=== PATIENT | female | born 1965 | race Asian ===

== ENCOUNTER 2017-09-06 00:29 | Emergency (ER) | payer OTHER ==
[~2017-09-06] VITALS: Ht 144.8 cm; Wt 54.8 kg
[2017-09-06 02:04] VITALS: BP 112/64
[2017-09-06] MEDS ORDERED: ALBU2.5V11 NEB (02:08)
[2017-09-06] MEDS ORDERED: ventolin (02:08)
== END 2017-09-06 02:44 | disposition home or self-care (01) ==
LOC: ED 02:18
DX: R05 Cough (principal); R06.02 Shortness of breath
CPT/HCPCS: 71020; 93005; 99284

== ENCOUNTER 2019-03-26 15:44 | Inpatient (IN) | payer OTHER ==
[~2019-03-26] VITALS: Ht 144.8 cm; Wt 32.4 kg
[~2019-03-26 15:44] MED LIST: ALBU2.5V11 NEB; ventolin
[2019-03-26 16:13] LABS: BASOPHILS # (AUTO) 0.03 x10^3/uL (0-0.1); BASOPHILS % (AUTO) 1 % (0-1); EOSINOPHILS # (AUTO) 0.18 x10^3/uL (0-0.4); EOSINOPHILS % (AUTO) 3 % (1-7); LYMPHOCYTES % (AUTO) 36 % (22-44); MD NO; MEAN CORPUSCULAR HEMOGLOBIN 29.7 pg (27.0-34.8); MEAN CORPUSCULAR HGB CONC 33.8 g/dL (32.4-35.8); MEAN CORPUSCULAR VOLUME 87.8 fL (80-100); MONOCYTES # (AUTO) 0.54 x10^3/uL (0.2-0.8); MONOCYTES % (AUTO) 9 % (2-9); NEUTROPHILS # (AUTO) 3.14 x10^3/uL (1.8-6.8); NEUTROPHILS % (AUTO) 52 % (42-75); PLATELET COUNT 350 x10^3/uL (130-400); RED BLOOD COUNT 4.78 x10^6/uL (3.82-5.3); RED CELL DISTRIBUTION WIDTH 13.4 % (9.6-15.2)
[2019-03-26 16:24] LABS: ALBUMIN 3.7 g/dL (3.4-5.0); ANION GAP 10 mmol/L (5-15); CALCIUM 9.1 mg/dL (8.5-10.1); CHLORIDE 108 mmol/L (98-107)
[2019-03-26 16:32] LABS: ALANINE AMINOTRANSFERASE 53 U/L (12-78); ALKALINE PHOSPHATASE 94 U/L (45-117); BILIRUBIN,TOTAL 0.4 mg/dL (0.2-1.0); CREATININE 0.52 mg/dL (0.55-1.02); TOTAL PROTEIN 7.9 g/dL (6.4-8.2); TROPONIN I < 0.015 ng/mL (0.000-0.045)
--- NOTE | 2019-03-26 16:50 | NUR ---
TO ROOM FROM LOBBY. NAD.
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
[2019-03-26] MEDS ORDERED: ASPI-515 PO (17:03)
--- NOTE | 2019-03-26 18:03 | NUR ---
ERP AT BEDSIDE FOR INITIAL ASSESSMENT
--- NOTE | 2019-03-26 18:28 | NUR ---
PT IN CT
--- NOTE | 2019-03-26 19:00 | NUR ---
IV ESTABLISHED. BP/SPO2/ECG MONITORIGN IN PLACE SINUS TACH ON MONITOR. PT USING LUE/RLE WO DIFFICULTY. DENIES NEED FOR PAIN MEDICATIONS AT THIS TIME
--- NOTE | 2019-03-26 19:32 | NUR ---
REPORT TO CHRIS GROVE ON FLOOR
[2019-03-26] MEDS ORDERED: ACETAMINOPHEN 325 MG TABLET PO PRN (20:00)
[2019-03-26 20:45] VITALS: BP 113/79
[2019-03-26] MEDS: ENOXAPARIN 40 MG/0.4 ML SQ SCH (20:59)
[2019-03-26 21:01] LABS: TROPONIN I < 0.015 ng/mL (0.000-0.045)
[2019-03-27] VITALS (7 sets, daily range): BP systolic 90–118; BP diastolic 60–79
[2019-03-27 02:04] LABS: BASOPHILS # (AUTO) 0.07 x10^3/uL (0-0.1); BASOPHILS % (AUTO) 1 % (0-1); EOSINOPHILS # (AUTO) 0.18 x10^3/uL (0-0.4); EOSINOPHILS % (AUTO) 3 % (1-7); LYMPHOCYTES # (AUTO) 2.44 x10^3/uL (1-3.4); LYMPHOCYTES % (AUTO) 45 % (22-44); MD NO; MEAN CORPUSCULAR HEMOGLOBIN 29.5 pg (27.0-34.8); MEAN CORPUSCULAR HGB CONC 33.7 g/dL (32.4-35.8); MEAN CORPUSCULAR VOLUME 87.6 fL (80-100); MONOCYTES # (AUTO) 0.59 x10^3/uL (0.2-0.8); MONOCYTES % (AUTO) 11 % (2-9); NEUTROPHILS % (AUTO) 40 % (42-75); PLATELET COUNT 292 x10^3/uL (130-400); RED BLOOD COUNT 4.58 x10^6/uL (3.82-5.3); RED CELL DISTRIBUTION WIDTH 13.3 % (9.6-15.2)
[2019-03-27 02:17] LABS: TROPONIN I < 0.015 ng/mL (0.000-0.045)
[2019-03-27 02:20] LABS: ALANINE AMINOTRANSFERASE 46 U/L (12-78); ALBUMIN 3.2 g/dL (3.4-5.0); ANION GAP 11 mmol/L (5-15); CALCIUM 8.7 mg/dL (8.5-10.1); CHLORIDE 109 mmol/L (98-107); CHOLESTEROL, TOTAL 101 mg/dL (140-239); CREATININE 0.59 mg/dL (0.55-1.02)
[2019-03-27 02:22] LABS: ALKALINE PHOSPHATASE 87 U/L (45-117); BILIRUBIN,TOTAL 0.2 mg/dL (0.2-1.0); CHOL/HDL RATIO 2.6; HDL CHOL % 39 % (28-40); HDL CHOLESTEROL (DIRECT) 39 mg/dL (40-60); LDL CHOLESTEROL,CALCULATED 43 mg/dL (54-169); LDL/HDL RATIO 1.1 (0.5-3.0); TOTAL PROTEIN 7.1 g/dL (6.4-8.2); TRIGLYCERIDES 97 mg/dL (50-200); VLDL CHOLESTEROL 19 mg/dL (0-25)
[2019-03-27] MEDS: ASPIRIN 325 MG TABLET EC PO SCH (06:12)
[2019-03-27] MEDS ORDERED: GADOBUTROL 7.5 MMOL/7.5 ML PFS ONE (09:19)
[2019-03-27] MEDS: SODIUM CHLORIDE 0.9% 1,000 ML IV SCH (17:11)
[2019-03-27 18:27] LABS: FREE T4 (FREE THYROXINE) > 8.00 ng/dL (0.76-1.46)
[2019-03-27] MEDS: ENOXAPARIN 40 MG/0.4 ML SQ SCH (22:33)
[2019-03-28 01:04] VITALS: BP 102/62
[2019-03-28] MEDS: SODIUM CHLORIDE 0.9% 1,000 ML IV SCH (04:13)
[2019-03-28 04:19] VITALS: BP 111/65
[2019-03-28 06:54] VITALS: BP 112/67
[2019-03-28] MEDS: ASPIRIN 325 MG TABLET EC PO SCH (09:12)
[2019-03-28 14:23] VITALS: BP 116/69
[2019-03-28] MEDS ORDERED: METO25TA35 PO (16:00)
== END 2019-03-28 18:44 | disposition home or self-care (01) | DRG 644 ==
LOC: ED 18:48 → EDIP 19:03 → 4WST 19:45
PROVIDERS: ADMIT Family Medicine; ATTEND Family Medicine
DX: E05.20 Thyrotoxicosis with toxic multinodular goiter without thyrotoxic crisis or storm (principal); M48.54XA Collapsed vertebra, not elsewhere classified, thoracic region, initial encounter for fracture; N64.4 Mastodynia; R00.0 Tachycardia, unspecified; M94.0 Chondrocostal junction syndrome [Tietze]; Z86.73 Personal history of transient ischemic attack (TIA), and cerebral infarction without residual deficits; Z79.899 Other long term (current) drug therapy; Z79.01 Long term (current) use of anticoagulants; Z98.51 Tubal ligation status
CPT/HCPCS: 36415; 70450; 70553; 71046; 72146; 76536; 80053; 80061; 84439; 84443; 84481; 84484; 85025; 85379; 93005; 93306; 93880; 99285; A9585; G0378; J1650; J7030

== ENCOUNTER 2019-04-30 07:52 | Outpatient (CLI) | payer OTHER ==
[~2019-04-30 07:52] MED LIST changes: +ASPI-515 PO; +METO25TA35 PO
== END 2019-04-30 23:59 | disposition home or self-care (01) ==
LOC: CFH 07:52
PROVIDERS: ATTEND Physician Assistant Medical
DX: E05.90 Thyrotoxicosis, unspecified without thyrotoxic crisis or storm (principal)
CPT/HCPCS: 77080; 78013; A9516

== ENCOUNTER 2019-04-30 09:05 | Outpatient (CLI) | payer OTHER | END 2019-04-30 23:59 | disposition home or self-care (01) | LOC: RAD 09:05 | PROVIDERS: ATTEND Internal Medicine Endocrinology, Diabetes & Metabolism | DX: Z02.9 Encounter for administrative examinations, unspecified (principal) ==

== ENCOUNTER → 2020-04-02 | Outpatient (CLI) | payer OTHER ==
[2020-04-02 16:19] LABS: FREE T4 (FREE THYROXINE) 1.57 ng/dL (0.76-1.46)
== END | disposition home or self-care (01) ==
LOC: LAB 15:35
PROVIDERS: ATTEND Internal Medicine Endocrinology, Diabetes & Metabolism
DX: E05.90 Thyrotoxicosis, unspecified without thyrotoxic crisis or storm (principal); E55.9 Vitamin D deficiency, unspecified
CPT/HCPCS: 36415; 82306; 84439; 84443

== ENCOUNTER 2020-08-09 16:15 | Emergency (ER) | payer OTHER ==
[~2020-08-09] VITALS: Ht 144.8 cm; Wt 55.9 kg
[2020-08-09 17:12] LABS: BASOPHILS # (AUTO) 0.02 x10^3/uL (0-0.1); BASOPHILS % (AUTO) 0 % (0-1); EOSINOPHILS # (AUTO) 1.02 x10^3/uL (0-0.4); EOSINOPHILS % (AUTO) 15 % (1-7); LYMPHOCYTES # (AUTO) 2.27 x10^3/uL (1-3.4); LYMPHOCYTES % (AUTO) 33 % (22-44); MD NO; MEAN CORPUSCULAR HEMOGLOBIN 29.6 pg (27.0-34.8); MEAN CORPUSCULAR HGB CONC 33.3 g/dL (32.4-35.8); MEAN CORPUSCULAR VOLUME 88.9 fL (80-100); MEAN PLATELET VOLUME 8.4 fL (7.4-10.4); MONOCYTES # (AUTO) 0.44 x10^3/uL (0.2-0.8); MONOCYTES % (AUTO) 6 % (2-9); NEUTROPHILS # (AUTO) 3.18 x10^3/uL (1.8-6.8); NEUTROPHILS % (AUTO) 46 % (42-75); PLATELET COUNT 296 x10^3/uL (130-400); RED BLOOD COUNT 5.08 x10^6/uL (3.82-5.3); RED CELL DISTRIBUTION WIDTH 13.8 % (9.6-15.2)
[2020-08-09 17:21] LABS: ALANINE AMINOTRANSFERASE 27 U/L (12-78); ALBUMIN 3.8 g/dL (3.4-5.0); ANION GAP 7 mmol/L (5-15); CALCIUM 8.9 mg/dL (8.5-10.1); CHLORIDE 109 mmol/L (98-107); CREATININE 1.04 mg/dL (0.55-1.02)
[2020-08-09 17:23] LABS: ALKALINE PHOSPHATASE 60 U/L (45-117); BILIRUBIN,TOTAL 0.2 mg/dL (0.2-1.0); TOTAL PROTEIN 8.1 g/dL (6.4-8.2)
--- NOTE | 2020-08-09 19:20 | NUR ---
Pt in room from lobby at this time.
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
[2020-08-09] MEDS ORDERED: MECLIZINE CHEWABLE 25 MG TAB PO ONE (20:30)
[2020-08-09] MEDS ORDERED: ONDANSETRON 2MG/ML, 2ML IVPush ONE (20:30)
[2020-08-09] MEDS ORDERED: MECLIZINE CHEWABLE 25 MG TAB ONE (20:32)
[2020-08-09] MEDS ORDERED: ONDANSETRON 2MG/ML, 2ML ONE (20:32)
[2020-08-09 20:55] LABS: TROPONIN I < 0.015 ng/mL (0.000-0.045)
--- NOTE | 2020-08-09 21:03 | NUR ---
chart up for recheck
[2020-08-09 21:57] VITALS: BP 122/74
== END 2020-08-09 22:04 | disposition home or self-care (01) ==
LOC: ED 18:15
DX: R42 Dizziness and giddiness (principal); R51 Headache; R00.0 Tachycardia, unspecified; Z86.73 Personal history of transient ischemic attack (TIA), and cerebral infarction without residual deficits
CPT/HCPCS: 36415; 70450; 71045; 80053; 84443; 84484; 85025; 93005; 96374; 99285; J2405

== ENCOUNTER 2021-06-27 07:34 | Day surgery (SDC) | payer OTHER ==
[~2021-06-27] VITALS: Ht 144.8 cm; Wt 56.4 kg
[~2021-06-27 07:34] MED LIST changes: -ASPI-515 PO; +ASPI-963 PO; +BUPIVACAINE/PF 0.25% ONE; +EPINEPHRINE 1 MG/ML, 1ML ONE; +GENTAMICIN 80 MG/2 ML ONE; +VANCOMYCIN 500 MG ONE
[2021-06-27] MEDS ORDERED: ACETAMINOPHEN 325 MG TABLET PO PRN (08:00)
[2021-06-27] MEDS ORDERED: ONDANSETRON 2MG/ML, 2ML IVPush PRN (08:00)
[2021-06-27] MEDS ORDERED: MEPERIDINE/PF 25MG/0.5ML IVPush PRN (08:00)
[2021-06-27] MEDS ORDERED: EPHEDRINE 50 MG/ML, 1ML IVPush PRN (08:00)
[2021-06-27] MEDS ORDERED: HYDROmorphone 1 MG/ML, 1ML INJ IVPush PRN (08:00)
[2021-06-27] MEDS ORDERED: PROMETHAZINE 25 MG/ML, 1ML IVPush PRN (08:00)
[2021-06-27] MEDS ORDERED: hydrALAzine 20 MG/ML, 1ML IV PRN (08:00)
[2021-06-27] MEDS ORDERED: LABETALOL 5MG/ML, 20ML IV PRN (08:00)
[2021-06-27] MEDS ORDERED: CHLORHEXIDINE 15 ML UDC ONE (08:23)
[2021-06-27] MEDS ORDERED: CHLORHEXIDINE 15 ML UDC PO ONE (08:30)
[2021-06-27] MEDS ORDERED: LACTATED RINGERS 1,000 ML IV SCH (08:30)
[2021-06-27] MEDS ORDERED: LIDOCAINE-MPF 1%, 2ML INFIL ONE (08:30)
[2021-06-27 08:50] VITALS: BP 122/81
[2021-06-27] MEDS ORDERED: ALEN1TAB PO (09:00)
[2021-06-27] MEDS ORDERED: FENTANYL PF 100 MCG/2ML ONE ×3 (10:59→13:13)
[2021-06-27] MEDS ORDERED: MIDAZOLAM 1 MG/ML, 2ML ONE (10:59)
[2021-06-27] MEDS ORDERED: LIDOCAINE-MPF 2% ,5ML ONE (11:32)
[2021-06-27] MEDS ORDERED: SODIUM CHLORIDE 0.9% PF 10ML ONE (11:32)
[2021-06-27] MEDS ORDERED: SUGAMMADEX 200 MG/2 ML IVPush ONE (11:32)
[2021-06-27] MEDS ORDERED: CEFAZOLIN 1,000 MG ONE (11:33)
[2021-06-27] MEDS ORDERED: DEXAMETHASONE 4 MG/ML, 1ML ONE (11:33)
[2021-06-27] MEDS ORDERED: SUCCINYLCHOLINE 20 MG/ML, 10ML ONE (11:33)
[2021-06-27] MEDS ORDERED: PROPOFOL 10 MG/ML, 20ML ONE (11:33)
[2021-06-27] MEDS ORDERED: KETOROLAC 30 MG/1 ML ONE (11:33)
[2021-06-27] MEDS ORDERED: ONDANSETRON 2MG/ML, 2ML ONE (11:33)
[2021-06-27] MEDS ORDERED: ROCURONIUM 10MG/ML,5ML ONE (11:33)
[2021-06-27] MEDS ORDERED: BUPIVACAINE/PF-EPI 0.25% 1:200K INFIL ONE (12:04)
[2021-06-27] MEDS: FENTANYL PF 100 MCG/2ML IV PRN ×2 (13:10→13:20)
[2021-06-27] MEDS ORDERED: OXYcodone 5 MG/5 ML ORAL.SOL UDC ONE ×2 (13:13→13:47)
[2021-06-27] MEDS: OXYcodone 5 MG/5 ML ORAL.SOL UDC PO PRN ×2 (13:15→13:48)
== END 2021-06-27 16:30 | disposition home or self-care (01) ==
LOC: OUT 07:34
PROVIDERS: ATTEND Obstetrics & Gynecology Female Pelvic Medicine and Reconstructive Surgery
DX: D25.9 Leiomyoma of uterus, unspecified (principal); N81.89 Other female genital prolapse; N39.46 Mixed incontinence; N81.11 Cystocele, midline; N81.5 Vaginal enterocele; N81.6 Rectocele; N83.8 Other noninflammatory disorders of ovary, fallopian tube and broad ligament; E03.9 Hypothyroidism, unspecified; J45.909 Unspecified asthma, uncomplicated; F32.9 Major depressive disorder, single episode, unspecified; M19.90 Unspecified osteoarthritis, unspecified site; Z79.899 Other long term (current) drug therapy; Z88.2 Allergy status to sulfonamides; Z88.8 Allergy status to other drugs, medicaments and biological substances; Z98.51 Tubal ligation status; Z90.49 Acquired absence of other specified parts of digestive tract
CPT/HCPCS: 57265; 57282; 57288; 58552; 88307; 93005; C1771; J0171; J0330; J0690; J1100; J1170; J1580; J1885; J2250; J2405; J2704; J3010; J3370; J7120